=== PATIENT | male | born 1990 | race Caucasian/White ===

== ENCOUNTER 2019-01-31 05:54 | Emergency (ER) | payer BC ==
[~2019-01-31] VITALS: Ht 188 cm; Wt 90.7 kg
[2019-01-31 06:04] VITALS: Ht 188 cm; Wt 90.7 kg
[2019-01-31 06:45] LABS: BASOPHIL % 0.1 % (0-2); PLATELET COUNT 222 x10^3mcL (130-400); RED CELL DISTRIBUTION WIDTH 12.6 % (11.5-14.5)
[2019-01-31 06:53] LABS: CALCIUM 8.9 mg/dL (8.5-10.1); CARBON DIOXIDE 24.9 mmol/L (21-32); CHLORIDE SERUM 99 mmol/L (98-107); CREATININE SERUM 0.9 mg/dL (0.7-1.3); GFR1 > 60 mL/min; GLUCOSE SERUM 137 mg/dL (74-106); POTASSIUM SERUM 4.6 mmol/L (3.5-5.1); SODIUM SERUM 134 mmol/L (136-145)
[2019-01-31 06:59] LABS: ALBUMIN 4.4 g/dL (3.4-5.0); ALKALINE PHOSPHATASE 77 U/L (46-116); ALT/SGPT 43 U/L (16-63); AST/SGOT 22 U/L (15-37); BILIRUBIN DIRECT 0.14 mg/dL (0.0-0.2); BILIRUBIN TOTAL 0.57 mg/dL (0.20-1.00); LIPASE 86 IU/L (73-393); TOTAL PROTEIN, SERUM 7.9 g/dL (6.4-8.2)
[2019-01-31 07:42] LABS: UA SPECIFIC GRAVITY 1.015 (1.005-1.035); microscopic required? YES; urine erythrocyte TRACE (NEGATIVE)
[2019-01-31 09:10] VITALS: BP 123/75
== END 2019-01-31 09:10 | disposition home or self-care (01) ==
LOC: ED 05:54
PROVIDERS: Student in an Organized Health Care Education/Training Program
DX: N50.811 Right testicular pain (principal); J02.9 Acute pharyngitis, unspecified; R11.0 Nausea; M79.10 Myalgia, unspecified site
CPT/HCPCS: 80201; 87491; 87591; 87804; J0696; J2270; J2405; J7030; Q0092